=== PATIENT | male | born 1975 | race Caucasian/White ===

== ENCOUNTER 2016-08-29 20:12 | Emergency (ER) | payer OTHER ==
[2016-08-29 21:16] LABS: BILIRUBIN NEGATIVE (NEGATIVE); BLOOD 1+ Ery/uL (NEGATIVE); CLARITY CLEAR (CLEAR); COLOR YELLOW (YELLOW); GLUCOSE (U) NORMAL (NORMAL); KETONE (U) NEGATIVE (NEGATIVE); LEUKOCYTES NEGATIVE Leu/uL (NEGATIVE); NITRITE NEGATIVE (NEGATIVE); PROTEIN NEGATIVE (NEGATIVE); UROBILINOGEN 0.2 mg/dL (0.2-1.0)
[2016-08-29 21:21] LABS: BACTERIA 1+
[2016-08-29 21:42] LABS: BASOPHIL 0.3 % (0-2); EOSINOPHIL 2.7 % (0-5); HCT 49.7 % (42.0-52.0); HGB 18.8 g/dl (13.2-18.0); LYMPHOCYTE 30.4 % (15-48); MCH 31.4 pg (25.0-31.0); MCHC 37.8 g/dL (32.0-36.0); MCV 83.1 fL (78.0-100.0); MONOCYTE 11.2 % (0-12); MPV 8.7 fL (6.0-9.5); NEUTROPHIL 55.4 % (41-80); PLT 308 K/uL (150-400); RBC 5.98 M/uL (4.70-6.00); RDW 12.8 % (11.5-14.0); WBC 11.8 K/uL (4.0-10.5)
[2016-08-29 22:03] LABS: ALBUMIN 4.9 g/dL (3.5-5.0); BILIRUBIN - TOTAL 0.4 mg/dL (0.1-1.0); CREATININE 1.5 mg/dL (0.7-1.2); GLOBULIN (CALCULATION) 3.2 g/dL (2.2-4.2); TOTAL PROTEIN 8.1 g/dL (6.4-8.3)
== END 2016-08-29 23:35 | disposition home or self-care (01) ==
LOC: FER 20:12
PROVIDERS: Emergency Medicine Emergency Medical Services
DX: R10.32 Left lower quadrant pain (principal); N20.0 Calculus of kidney; E86.9 Volume depletion, unspecified; F17.210 Nicotine dependence, cigarettes, uncomplicated; Z88.8 Allergy status to other drugs, medicaments and biological substances; Z98.890 Other specified postprocedural states
CPT/HCPCS: 36415; 80053; 81001; 85025; J2270; J2405; Q9967